=== PATIENT | male | born 1980 | race Hispanic/Latino ===

== ENCOUNTER 2017-10-26 17:27 | Emergency (ER) | payer OTHER ==
[2017-10-26] MEDS ORDERED: DiphenhydrAMINE HCL 50 MG/ML VIAL ONE (17:42)
== END 2017-10-26 18:14 | disposition home or self-care (01) ==
LOC: EDH 17:27
DX: F43.0 Acute stress reaction (principal)
CPT/HCPCS: 96372; 99284; J1200